=== PATIENT | male | born 1975 | race Caucasian/White ===

== ENCOUNTER 2017-09-25 20:55 | Emergency (ER) | payer SELFPAY ==
[~2017-09-25] VITALS: Ht 193 cm; Wt 170.5 kg
[2017-09-25 21:18] VITALS: BP 176/95; PULSE 72; TEMP 98.5
[2017-09-25] MEDS ORDERED: CLEOCIN HCL300 MG PO (21:37)
[2017-09-25] MEDS ORDERED: PROZAC 10MG10 MG PO (21:39)
[2017-09-25] MEDS ORDERED: ZESTRIL 10MG10 MG PO (21:39)
[2017-09-25] MEDS ORDERED: HCTZ 25MG TAB25 MG PO (21:39)
[2017-09-25] MEDS ORDERED: MOBIC15 MG PO (21:39)
== END 2017-09-25 21:52 | disposition home or self-care (01) ==
LOC: COL.ER 20:55
DX: K08.89 Other specified disorders of teeth and supporting structures (principal); F32.9 Major depressive disorder, single episode, unspecified; I10 Essential (primary) hypertension

== ENCOUNTER 2023-08-16 09:09 | Emergency (ER) | payer OTHER ==
[~2023-08-16] VITALS: Ht 193 cm; Wt 109.1 kg
[~2023-08-16 09:09] MED LIST: CLEOCIN HCL300 MG PO; HCTZ 25MG TAB25 MG PO; MOBIC15 MG PO; PROZAC 10MG10 MG PO; ZESTRIL 10MG10 MG PO
[2023-08-16 09:13] VITALS: TEMP 98
[2023-08-16 10:00] LABS: BASO % 0.4 % (0.0-2.0); EOS # 0.1 K/mm3 (0.0-0.7); EOS % 0.6 % (0.0-4.0); GRAN # 7.3 K/mm3 (1.4-6.5); GRAN % 78.8 % (42.2-75.2); HEMATOCRIT 42.7 % (42.0-52.0); HEMOGLOBIN 14.2 g/dl (13.5-18.0); LYMPH # 1.1 K/mm3 (1.2-3.4); LYMPH % 11.9 % (20.0-51.0); MEAN CELL VOLUME 91 fl (80.0-100.0); MEAN CORPUSCULAR HEMOGLOBIN 30 pg (27-31); MEAN CORPUSCULAR HGB CONC 33 g/dl (33.0-37.0); MEAN PLATELET VOLUME 9.7 fl (7.4-10.4); MONO # 0.8 K/mm3 (0.1-0.6); MONO % 8.1 % (1.7-9.3); PLATELET COUNT 310 K/mm3 (130-400); RED BLOOD COUNT 4.68 M/mm3 (4.20-5.60); REDCELL DISTRIBUTION WIDTH-CV 12.7 % (11.5-14.5)
[2023-08-16 10:41] LABS: ALANINE AMINOTRANSFERASE 15 U/L (0-55); ALBUMIN 3.6 g/dL (3.5-5.0); ALKALINE PHOSPHATASE 60 U/L (40-150); ANION GAP 11 mmol/L (7-16); AST,SGOT 14 U/L (5-34); BILIRUBIN,TOTAL 0.9 mg/dL (0.2-1.2); BLOOD UREA NITROGEN 18 mg/dL (9-21); C-REACTIVE PROTEIN 7.07 mg/dL (0.00-0.50); CALCIUM 9.7 mg/dL (8.4-10.2); CHLORIDE 100 mEq/L (98-107); GLUCOSE 90 mg/dL (70-99); POTASSIUM 4.4 mEq/L (3.5-4.5); SODIUM 138 mEq/L (136-145); TOTAL PROTEIN 7.7 g/dl (6.2-8.1)
[2023-08-16 10:48] LABS: TROPONIN-I < 0.010 ng/mL (0.00-0.033)
[2023-08-16] MEDS ORDERED: Iohexol 300 - 100 ML VIAL IV ONE (10:58)
[2023-08-16] MEDS ORDERED: NS 100 ML IV SCH (10:58)
[2023-08-16] MEDS ORDERED: BACTRIM DS 8001 TAB PO (12:46)
[2023-08-16] MEDS ORDERED: CEPHALEXIN500 M1 PO (12:46)
[2023-08-16 13:18] VITALS: BP 125/82; PULSE 82
== END 2023-08-16 13:18 | disposition home or self-care (01) ==
LOC: COL.ER 09:09
PROVIDERS: Personal Emergency Response Attendant
DX: L03.031 Cellulitis of right toe (principal)
CPT/HCPCS: J3370; J7050; Q9967